=== PATIENT | male | born 1985 | race Caucasian/White ===

== ENCOUNTER 2019-02-14 12:58 | Emergency (ER) | payer SELFPAY ==
[~2019-02-14] VITALS: Ht 182.9 cm; Wt 122.7 kg
[2019-02-14 13:00] VITALS: BP 125/64; PULSE 124; RESP 18; Ht 182.9 cm; Wt 122.7 kg
[2019-02-14] MEDS ORDERED: IBUPROFEN 800 MG TAB PO ONE (14:00)
[2019-02-14] MEDS ORDERED: NAPR-985 PO (14:44)
--- NOTE | 2019-02-14 14:46 | ERD ---
ER Documentation Chief Complaint Chief Complaint left ankle pain and bilateral leg pain s/p fell hiking yesterday HPI 34-year-old male presenting with left ankle pain. Patient states that he fell down an embankment yesterday and twisted his left ankle. He had some pain ever since. Patient is currently homeless and uses speed and heroin. He says he last used yesterday. He has not had any alcohol. He denies any numbness or tingling. Patient also has some mild back pain. He denies any problem with urination or bowel movement. Denies abdominal pain. Denies fever. Med problems: Hep C. NKDA. Surgical history denies. ROS All systems reviewed and are negative except as per history of present illness. Medications Home Meds Active Scripts Cephalexin* (Keflex*) 500 Mg Capsule, 500 MG PO QID for 7 Days, #28 CAP Prov:BHARAT RIBEIRO PA-C 02/14/19 Sulfamethoxazole/Trimethoprim* (Bactrim Ds* Tablet) 1 Each Tablet, 1 TAB PO BID, #14 TAB Prov:BHARAT RIBEIRO PA-C 02/14/19 Naproxen* (Naprosyn*) 500 Mg Tablet, 500 MG PO BID PRN for PAIN AND/OR INFLAMMATION, #30 TAB Prov:BHARAT RIBEIRO PA-C 02/14/19 Allergies Allergies: Coded Allergies: No Known Allergy (Unverified , 02/14/19) PMhx/Soc Medical and Surgical Hx: pt denies Surgical Hx Hx Miscellaneous Medical Probl: Yes (HEP C) Hx Alcohol Use: Yes Hx Substance Use: Yes (METH, MARIJUANA, HEROINE) Hx Tobacco Use: Yes Smoking Status: Current some day smoker FmHx Family History: No diabetes, No coronary disease, No other Physical Exam Vitals Vital Signs Date Temp Pulse Resp B/P (MAP) Pulse Ox O2 O2 Flow FiO2 Time Delivery Rate 02/14/19 100.3 124 18 125/64 100 13:00 (84) Physical Exam GENERAL: The patient is well-appearing, well-nourished, in no acute distress HEENT: Atraumatic. Conjunctivae are pink. Pupils equal, round, and reactive to light. There is no scleral icterus. Tympanic membranes clear bilaterally. Oropharynx clear. No nystagmus or photophobia. HEART: Regular rate and rhythm. No murmurs, clicks, rubs or gallops. No S3 or S4. ABDOMEN:Soft, nontender and nondistended. Good bowel sounds. No rebound or guarding. No gross peritonitis. No gross organomegaly or masses. No Gilbert sign or McBurney point tenderness. BACK: No midline or flank tenderness. EXTREMITIES: Tender to palpation to right ankle. No obvious deformity. Pain with flexion extension but strength 5 out of 5. Compartments soft. NEUROLOGIC: Alert and oriented. Cranial nerves II through XII intact. Motor strength in all 4 extremities with 5 out of 5 strength. Sensation grossly intact. SKIN: Multiple abrasions noted to face with scabbing over it. No active bleeding vesicles or pustules. Questionable surrounding erythema. Results 24 hrs Current Medications Medications Dose Sig/Justin Start Time Status Last (Trade) Ordered Route PRN Stop Time Admin Dose Reason Admin Ibuprofen 800 mg ONCE ONCE 02/14/19 DC 02/14/19 (Motrin) PO 14:00 13:48 02/14/19 14:01 Procedures/MDM DIAGNOSTIC IMAGING REPORT Patient: GIRMA DUCKWORTH : 1985 Age: 34 Sex: M MR #: [id number] DOS: 02/14/19 1336 Ordering MD: WILLY RIBEIRO PA-C Location: [facility] Room/Bed: PROCEDURE: XR Ankle. CLINICAL INDICATION: Pain TECHNIQUE: AP, oblique and lateral views of the left ankle were performed. COMPARISON: None. FINDINGS: There is normal mineralization and alignment. No fracture or osseous lesion is identified. The joints are normal. There is soft tissue swelling lateral to lateral malleolus. RPTAT: AA IMPRESSION: Soft tissue swelling lateral to the lateral malleolus with no acute fracture. ER course: John wrap and crutches given ED. Neuro intact pre-and post John wrap application. DM: 34-year-old male presenting with ankle pain. Patient has questionable erythema noted around his abrasions so I will treat with antibiotics. I have low suspicion for acute fracture dislocation. I have low suspicion for tendon or ligament rupture. Patient is discharged with strict ER precautions and told to follow-up with primary care. Patient will be told to follow-up with primary care and discharged with pain medications. All questions answered at discharge. Departure Diagnosis: Primary Impression: Ankle injury Condition: Stable Patient Instructions: Treating Ankle Sprains Referrals: [facility] YOU HAVE RECEIVED A MEDICAL SCREENING EXAM AND THE RESULTS INDICATE THAT YOU DO NOT HAVE A CONDITION THAT REQUIRES URGENT TREATMENT IN THE EMERGENCY DEPARTMENT. FURTHER EVALUATION AND TREATMENT OF YOUR CONDITION CAN WAIT UNTIL YOU ARE SEEN IN YOUR DOCTORS OFFICE WITHIN THE NEXT 1-2 DAYS. IT IS YOUR RESPONSIBILITY TO MAKE AN APPOINTMENT FOR FOLOW-UP CARE. IF YOU HAVE A PRIMARY DOCTOR --you should call your primary doctor and schedule an appointment IF YOU DO NOT HAVE A PRIMARY DOCTOR YOU CAN CALL OUR PHYSICIAN REFERRAL HOTLINE AT IF YOU CAN NOT AFFORD TO SEE A PHYSICIAN YOU CAN CHOSE FROM THE FOLLOWING [facility] [address] [facility] [facility] [address] [facility] [address] [facility] [address] [facility]. [facility] [address] [facility]. [facility]. [address] Additional Instructions: FOLLOW UP WITH YOUR PRIMARY CARE PHYSICIAN TOMORROW.Return to this facility if you are not improving as expected. BHARAT RIBEIRO PA-C Feb 14, 2019 14:46
[2019-02-14] MEDS ORDERED: SULF1TAB31 PO (14:47)
[2019-02-14] MEDS ORDERED: CEPH-443 PO (14:47)
== END 2019-02-14 15:08 | disposition home or self-care (01) ==
LOC: FTE 12:58
DX: S99.912A Unspecified injury of left ankle, initial encounter (principal); S00.81XA Abrasion of other part of head, initial encounter; W18.39XA Other fall on same level, initial encounter; Y92.9 Unspecified place or not applicable
CPT/HCPCS: 73610